=== PATIENT | male | born 1950 | race Caucasian/White ===

== ENCOUNTER 2022-04-28 06:28 | Inpatient (IN) ==
--- NOTE | 2022-04-14 11:31 | PAT Medication Instructions ---
Medication Instructions Date of Service April 14, 2022 Home Medications famotidine 20 mg tablet 20 mg PO HS insulin glargine 100 unit/mL subcutaneous cartridge 35 unit subcut QAM insulin lispro 200 unit/mL (3 mL) subcutaneous pen (Humalog KwikPen U-200 Insulin) 22 unit subcut TIDM lisinopril 20 mg tablet 20 mg PO QPM metformin 1,000 mg tablet 1,000 mg PO QPM Calcium 600-D3 Plus (mag-zinc)) 1 tab PO QAM ascorbic acid (vitamin C) 1,000 mg tablet (Vitamin C) 1,000 mg PO QAM aspirin 81 mg capsule 81 mg PO QAM atorvastatin 40 mg tablet 40 mg PO HS cholecalciferol (vitamin D3) 125 mcg (5,000 unit) tablet (Vitamin D3) 125 mcg PO QAM cyanocobalamin (vitamin B-12) 1,000 mcg tablet (Vitamin B-12) 1,000 mcg PO QAM fenofibrate nanocrystallized 145 mg tablet 145 mg PO QAM cenehrwfjva-fgv-hbrlqoqob-vitC capsule (Glucosamine Complex-MSM capsule) 1 cap PO QAM insulin glargine 100 unit/mL subcutaneous solution (Lantus U-100 Insulin) 45 unit subcut QPM metoprolol succinate 50 mg tablet,extended release 24 hr 50 mg PO QPM Multivitamin 50 Plus tablet) 1 tab PO QAM ASK your prescriber and surgeon aspirin 81 mg capsule 81 mg PO QAM STOP taking 2 weeks before surgery (or as soon as possible if surgery is within 2 weeks) bpvxnuowwuh-fok-mnzguelun-vitC capsule (Glucosamine Complex-MSM capsule) 1 cap PO QAM STOP taking 48 hours before surgery fenofibrate nanocrystallized 145 mg tablet 145 mg PO QAM DO NOT take the morning of surgery insulin lispro 200 unit/mL (3 mL) subcutaneous pen (Humalog KwikPen U-200 Insulin) 22 unit subcut TIDM Calcium 600-D3 Plus (mag-zinc)) 1 tab PO QAM ascorbic acid (vitamin C) 1,000 mg tablet (Vitamin C) 1,000 mg PO QAM cholecalciferol (vitamin D3) 125 mcg (5,000 unit) tablet (Vitamin D3) 125 mcg PO QAM cyanocobalamin (vitamin B-12) 1,000 mcg tablet (Vitamin B-12) 1,000 mcg PO QAM Multivitamin 50 Plus tablet) 1 tab PO QAM Take evening before surgery famotidine 20 mg tablet 20 mg PO HS insulin lispro 200 unit/mL (3 mL) subcutaneous pen (Humalog KwikPen U-200 Insulin) 22 unit subcut TIDM lisinopril 20 mg tablet 20 mg PO QPM metformin 1,000 mg tablet 1,000 mg PO QPM atorvastatin 40 mg tablet 40 mg PO HS insulin glargine 100 unit/mL subcutaneous solution (Lantus U-100 Insulin) 45 unit subcut QPM metoprolol succinate 50 mg tablet,extended release 24 hr 50 mg PO QPM Insulin Dependent Diabetic Patients * Test your blood sugar the morning of surgery * If Blood Sugar is GREATER THAN 150, take HALF of your regular dose of: insulin glargine- take 17 units * If Blood Sugar is LESS THAN 150, DO NOT TAKE ANY: insulin glargine Other Notes If you have any questions please call us at [phone] or [phone] or [phone] or [phone]
--- NOTE | 2022-04-15 09:09 | Anesthesiology Consultation ---
Date of Service April 15, 2022 Assessment & Plan (1) Encounter for pre-operative examination: - COVID screening: Per assessment on 04/15: No known COVID-19 positive contacts or current COVID-19 related symptoms. Travel screen negative. Patient vaccinated. At surgeon discretion if preop Covid testing being done. - Check BSG AM DOS - ASA instructions per surgeon/prescriber Chart Review Chart Review: Acceptable Risk for Surgery and Patient NOT seen in Pre Admission Testing History Surgery Operation Date: 04/28/22 10:20 Proposed Procedures p Percutaneous Endovascular Aneurysm Repair Abdominal Aortic Aneurysm - Constantino Rivera MD Height/Weight Height: 5 ft 9 in Weight: 114.2 kg Allergies Allergy/AdvReac Type Severity Reaction Status Date / Time almond Allergy Intermediate Cough Verified 04/14/22 14:35 (occasional) No Known Drug Allergies Allergy Verified 04/14/22 09:55 adhesive tape AdvReac Intermediate Rash Verified 04/14/22 09:55 Medications Home Medications Medication Instructions Recorded Confirmed Last Taken famotidine 20 mg tablet 20 mg PO HS 04/08/22 04/14/22 Unknown insulin glargine 100 unit/mL 35 unit subcut QAM 04/08/22 04/14/22 Unknown subcutaneous cartridge insulin lispro 200 unit/mL (3 mL) 22 unit subcut TIDM 04/08/22 04/14/22 Unknown subcutaneous pen (Humalog KwikPen U-200 Insulin) lisinopril 20 mg tablet 20 mg PO QPM 04/08/22 04/14/22 Unknown metformin 1,000 mg tablet 1,000 mg PO QPM 04/08/22 04/14/22 Unknown Ca 600 mg-D3 20 mcg-mag oxide 50 1 tab PO QAM 04/14/22 04/14/22 Unknown tp-Jg-zbxtss-manganese-boron tablet (Calcium 600-D3 Plus (mag-zinc)) ascorbic acid (vitamin C) 1,000 mg 1,000 mg PO QAM 04/14/22 04/14/22 Unknown tablet (Vitamin C) aspirin 81 mg capsule 81 mg PO QAM 04/14/22 04/14/22 Unknown atorvastatin 40 mg tablet 40 mg PO HS 04/14/22 04/14/22 Unknown cholecalciferol (vitamin D3) 125 125 mcg PO QAM 04/14/22 04/14/22 Unknown mcg (5,000 unit) tablet (Vitamin D3) cyanocobalamin (vitamin B-12) 1,000 mcg PO QAM 04/14/22 04/14/22 Unknown 1,000 mcg tablet (Vitamin B-12) fenofibrate nanocrystallized 145 145 mg PO QAM 04/14/22 04/14/22 Unknown mg tablet bzzvmmhkrbc-pgz-vxszokdvr-vitC 1 cap PO QAM 04/14/22 04/14/22 Unknown capsule (Glucosamine Complex-MSM capsule) insulin glargine 100 unit/mL 45 unit subcut QPM 04/14/22 04/14/22 Unknown subcutaneous solution (Lantus U-100 Insulin) metoprolol succinate 50 mg 50 mg PO QPM 04/14/22 04/14/22 Unknown tablet,extended release 24 hr trfffdfkhpsp-tvluiyja-zdptxc 1 tab PO QAM 04/14/22 04/14/22 Unknown tablet (Multivitamin 50 Plus tablet) Past Medical History Medical History Abdominal aortic aneurysm (AAA) 5.4 x 4.9 cm distal AAA per 04/08/22 CTA Aneurysm Stable common iliac artery aneurysms Popliteal artery aneurysms b/l, under surveillance x 10 years, no surgical intervention needed per patient Chronic back pain d/t compression fracture (20+ years ago) Chronic kidney disease stage 3 - monitoring Deep vein thrombosis RLE (treated with lovenox for 1 year in 2012), no issues since, unknown etiology Diabetes mellitus, type 2 IDDM GERD (gastroesophageal reflux disease) Hx of fall 20+ years ago - fell 12 feet after a ladder collapsed. had a compression fracture, no surgery - does have chronic back pain > treated with acupuncture at the time Hx of fracture of skull at age 3 d/t fall, no surgery -- was in a coma for several weeks. Hyperlipidemia Hypertension Osteoarthritis Peripheral neuropathy bilateral feet Pneumonia hx aspiration pneumonia ~2014 s/p colonoscopy and admitted inpatient at [facility] Precancerous lesion Multiple Seasonal depression Sleep apnea No device (no longer uses) Exercise / Class Metabolic Activity II 4-5 Yardwork/Stairs/Walk up hill Past Family History Family History Other No family history of adverse response to anesthesia Past Surgical History Surgical History Aneurysm artery, femoral Right femoral artery interposition graft (several years ago) H/O retained foreign body fully removed glass from bottom of the foot H/O umbilical hernia repair History of appendectomy History of colonoscopy History of endoscopic sinus surgery S/P aneurysm repair right femoral (2012 at [facility] [place]) S/P arthroscopy of left shoulder Past Anesthesia History No Family Hx of Anesthesia Complications and Other (hx aspiration pneumonia ~2 015 s/p colonoscopy and admitted inpatient at [facility]) History of PONV No Hx of PONV and Hx of Motion Sickness (seasickness) Social History Smoking Status: Former smoker tobacco type: cigarettes Do You Dip or Chew Tobacco: No Smoking End Date: Quit 1998 Hx Alcohol Use: No Hx Substance Use: Yes (CBD gummies occasionally) Review of Systems Patient denies chest pain, shortness of breath, dyspnea on exertion, fever, chills, cough, wheezing, palpitations. Physical Exam Vital Signs VITALS BP 179/52 P 77 TEMP 98.3 SP02 96%RA RESP 16 PHYSICAL Full cervical extension range of motion. Full TMJ range of motion. TMD 3 finger breaths Mallampati Score 3 Dentition: missing molars, + crowns/implants Lungs: clear throughout to auscultation Cardiac: regular rate and rhythm, no murmurs noted Spine: normal Carotid arteries: negative bruit Extremities: no edema Short, thick neck Lab Results Anesthesia Preop Results Results Anesthesia Widget: WBC 5.13 K/ul (4.8-10.8) 04/15/22 Hgb 14.7 g/dl (14.0-18.0) 04/15/22 Hct 41.6 % (42.0-52.0) L 04/15/22 Plt 181 K/uL (130-400) 04/15/22 PT 11.4 Seconds (9.0-12.0) 04/15/22 PTT 25.7 Seconds (21.0-31.0) 04/15/22 INR 1.1 (0.9-1.1) 04/15/22 Blood Type O Negative 04/15/22 Antibody Screen NEGATIVE 04/15/22 Testing Laboratory Results 04/14/22 SODIUM 137 POTASSIUM 4.1 CHLORIDE 106 CO2 27 BUN 28 CREATININE 1.7 GLUCOSE 210 A1C 8.7% Electrocardiogram Date: 04/15/22 SR with first degree AVB at 68bpm. LAD. Chest X-Ray Date: 04/15/22 FINDINGS: Lung volumes are normal. Lungs are clear. There is no pneumothorax or pleural effusion. Cardiac size is normal. Mediastinal contours are normal. There is no evidence for pulmonary edema. Old left second and third rib fractures are incidentally noted. There is an old right eighth rib fracture. IMPRESSION: No acute cardiopulmonary findings. Other Testing Aorta with runoff CTA (04/08/22) Extensive aortoiliac atherosclerotic plaque. 5.4 x 4.9 cm distal abdominal aortic aneurysm. Bilateral common and internal artery artery aneurysms, as above. The right internal iliac artery is occluded. Extensive atherosclerotic plaque within the bilateral lower extremities. Moderate to severe multifocal stenoses within the bilateral superficial femoral arteries with 2 small distal right SFA aneurysms, as above. Diminished flow within the bilateral calf vessels with occluded bilateral anterior tibial and posterior tibial arteries with flow predominantly through the peroneal arteries. Postoperative findings within the right groin. Mild aneurysmal dilatation of the right common femoral artery with moderate to severe stenosis at the origins of the right profunda and superficial femoral arteries. COVID-19 Risk Screen Screening Information COVID-19 Screen Date: 04/15/22 Exposure 21 Days Family/Household +COVID Last 21 Days: No Exposure 10 Days Any COVID Exposure Last 10 Days: No Symptoms Last 10 Days Experienced COVID Sx Last 10 Days: No + COVID 0-90 Days COVID + in Last 0-90 Days: No
[~2022-04-28 06:28] MED LIST: CEFAZOLIN 2,000 MG/15 ML SYR IV SCH
--- NOTE | 2022-04-28 06:40 | History & Physical Report ---
Date of Service April 28, 2022 Assessment & Plan (1) AAA (abdominal aortic aneurysm) without rupture: Plan: Patient for an EVAR of his AAA with a percutaneous approach on the left and open on the right. I have discussed the risks options and benefits of the procedure with the patient. The patient understands the risks options and benefits and agrees to the procedure. History of Present Illness Primary Care Provider: Woody Monterroso DO HPI: _Mr. Lyon is a middle-age male who presents to Dr. Rivera's vascular surgery clinic today for an annual follow-up visit regarding his history of aneurysmal disease. 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 This was done many years ago at [facility] by Dr. Frandy Davis. 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 Patient says he has not had any significant changes in his health, although he does state that his diabetes has not been under as good control in the last few months. He states that he did strike his right toe on something and fracture it, but this has healed up well. He admits some bilateral low back pain which radiates into his buttocks after ambulating about 50 yards. Other than that he denies any calf claudication, rest pain, nonhealing wounds or ulcers, discoloration of the feet or toes, other complaints. His aortoiliac ultrasound performed prior to today's appointment demonstrates an infrarenal abdominal aortic aneurysm measuring 4.8 cm in its largest diameter. This is increased in comparison to the ultrasound performed last year, at which time it measured 4.5 cm. He also has stable aneurysms of his common iliac arteries at 2.3 cm. His bilateral lower extremity arterial ultrasound demonstrates a patent right common femoral artery bifurcated interposition graft with elevated velocities of 423 cm/s, suggestive of a significant stenosis. 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 His left leg demonstrates an aneurysm of his left above-knee popliteal artery at 11 mm. It also demonstrates occlusion of his posterior tibial artery and anterior tibial artery in the calf with reconstitution. His bilateral ABIs are 1.0. On CTA he has an abdominal aortic aneurysm measuring 5.5 cm in size. It is saccular in shape. He also has distal superficial femoral popliteal artery aneurysms which are small and do not need to be treated at this time. He did have a right femoral artery aneurysm which was repaired bifurcated graft. Allergies Allergy/AdvReac Type Severity Reaction Status Date / Time almond Allergy Intermediate Cough Verified 04/14/22 14:35 (occasional) No Known Drug Allergies Allergy Verified 04/14/22 09:55 adhesive tape AdvReac Intermediate Rash Verified 04/14/22 09:55 Home Medications Medication Instructions Recorded Confirmed Type famotidine 20 mg tablet 20 mg PO 04/08/22 04/14/22 History insulin glargine 100 unit/mL 35 unit subcut QAM 04/08/22 04/14/22 History subcutaneous cartridge insulin lispro 200 unit/mL (3 mL) 22 unit subcut TI 04/08/22 04/14/22 History subcutaneous pen (Humalog KwikPen U-200 Insulin) lisinopril 20 mg tablet 20 mg PO QPM 04/08/22 04/14/22 History metformin 1,000 mg tablet 1,000 mg PO QPM 04/08/22 04/14/22 History Ca 600 mg-D3 20 mcg-mag oxide 50 1 tab PO QAM 04/14/22 04/14/22 History wl-Qk-ilbdtc-manganese-boron tablet (Calcium 600-D3 Plus (mag-zinc)) ascorbic acid (vitamin C) 1,000 mg 1,000 mg PO QAM 04/14/22 04/14/22 History tablet (Vitamin C) aspirin 81 mg capsule 81 mg PO QA 04/14/22 04/14/22 History atorvastatin 40 mg tablet 40 mg PO 04/14/22 04/14/22 History cholecalciferol (vitamin D3) 125 125 mcg PO QAM 04/14/22 04/14/22 History mcg (5,000 unit) tablet (Vitamin D3) cyanocobalamin (vitamin B-12) 1,000 mcg PO QAM 04/14/22 04/14/22 History 1,000 mcg tablet (Vitamin B-12) fenofibrate nanocrystallized 145 145 mg PO QAM 04/14/22 04/14/22 History mg tablet auqqtzspmoo-lnr-tfothumnf-vitC 1 cap PO QAM 04/14/22 04/14/22 History capsule (Glucosamine Complex-MSM capsule) insulin glargine 100 unit/mL 45 unit subcut QPM 04/14/22 04/14/22 History subcutaneous solution (Lantus U-100 Insulin) metoprolol succinate 50 mg 50 mg PO QPM 04/14/22 04/14/22 History tablet,extended release 24 hr oyqzbmnoqxvp-eubwlohs-ciwkcg 1 tab PO QAM 04/14/22 04/14/22 History tablet (Multivitamin 50 Plus tablet) Past Med/Surg History Medical History Abdominal aortic aneurysm (AAA) 5.4 x 4.9 cm distal AAA per 04/08/22 CTA Aneurysm Stable common iliac artery aneurysms Popliteal artery aneurysms b/l, under surveillance x 10 years, no surgical intervention needed per patient Chronic back pain d/t compression fracture (20+ years ago) Chronic kidney disease stage 3 - monitoring Deep vein thrombosis RLE (treated with lovenox for 1 year in 2012), no issues since, unknown etiology Diabetes mellitus, type 2 IDDM GERD (gastroesophageal reflux disease) Hx of fall 20+ years ago - fell 12 feet after a ladder collapsed. had a compression fracture, no surgery - does have chronic back pain > treated with acupuncture at the time Hx of fracture of skull at age 3 d/t fall, no surgery -- was in a coma for several weeks. Hyperlipidemia Hypertension Osteoarthritis Peripheral neuropathy bilateral feet Pneumonia hx aspiration pneumonia ~2014 s/p colonoscopy and admitted inpatient at [facility] Precancerous lesion Multiple Seasonal depression Sleep apnea No device (no longer uses) Surgical History Aneurysm artery, femoral Right femoral artery interposition graft (several years ago) H/O retained foreign body fully removed glass from bottom of the foot H/O umbilical hernia repair History of appendectomy History of colonoscopy History of endoscopic sinus surgery S/P aneurysm repair right femoral (2012 at [facility] [place]) S/P arthroscopy of left shoulder Family History Other No family history of adverse response to anesthesia Social History Smoking Status: Former smoker Smoking End Date: Quit 1998; Second Hand Exposure: No; Do You Dip or Chew Tobacco: No; Tobacco Cessation Education Requested by Patient: No Hx Alcohol Use: No Hx Substance Use: Yes (CBD gummies occasionally) Preferred Language: Italian Communication Ability: Effective Placement Director Required: No Beliefs That Will Affect Care: None Current Living Situation: Spouse Other Information That Helps Us Care for You: No Feels Safe at Home: Yes Safety Concerns: Feels Safe At This Time Assistive Devices: Glasses Review of Systems All systems reviewed & are unremarkable except as noted in HPI & below Physical Exam Physical Exam: Constitutional: In general patient is an overweight but healthy-appearing well- nourished developed middle-aged male in no distress. He is alert and oriented without any deficits. His neck is supple nontender without a carotid bruit. His heart is regular, his lungs are decreased lightly but clear throughout. His abdomen is protuberant due to body habitus. It is slightly firm but nontender. I am unable to appreciate any pulsatile mass. His brachial and radial pulse are +3. His left femoral pulse is +3. His right femoral pulse is +3. His right lower extremity pulses are nonpalpable. His left DP and PT pulses are +1. He has brisk capillary fill no sign of distal ischemia
[2022-04-28] MEDS ORDERED: ONDANSETRON INJ 2 MG/ML 2 ML VIAL ONE ×2 (07:09→22:21)
[2022-04-28] MEDS ORDERED: fentaNYL citrate PF 100 MCG/2 ML VIAL ONE ×2 (07:09→09:47)
[2022-04-28] MEDS ORDERED: PROPOFOL IV EMULSION 10 MG/ML 20 ML VIAL IV ONE (07:09)
[2022-04-28] MEDS ORDERED: DEXAMETHASONE SOD INJ 4 MG/ML VIAL ONE (07:09)
[2022-04-28] MEDS ORDERED: MIDAZOLAM HCL 1 MG/ML 2ML VIAL ONE (07:09)
[2022-04-28] MEDS ORDERED: ROCURONIUM BROMIDE 10 MG/ML 5 ML VIAL IV ONE ×9 (07:10→11:17)
[2022-04-28] MEDS ORDERED: PHENYLEPHRINE HCL 10 MG/ML VIAL ONE (07:10)
[2022-04-28] MEDS ORDERED: LIDOCAINE 2% MPF LOCAL 5 ML VIAL INFIL ONE (07:10)
--- NOTE | 2022-04-28 07:30 | History & Physical Bridge Note ---
Date of Service April 28, 2022 History & Physical Bridge Note I have examined the patient, reviewed the History & Physical and in the interval since the performance of the History & Physical I have noted the following changes of clinical significance: no changes noted
[2022-04-28] MEDS ORDERED: ePHEDrine sulfate 50 MG/ML AMP IV PRN (07:48)
[2022-04-28] MEDS ORDERED: ONDANSETRON INJ 2 MG/ML 2 ML VIAL IV PRN (07:48)
[2022-04-28] MEDS ORDERED: fentaNYL citrate PF 100 MCG/2 ML VIAL IV PRN (07:48)
[2022-04-28] MEDS ORDERED: ATROPINE SULFATE 0.1 MG/ML 10ML SYR IV PRN (07:48)
[2022-04-28] MEDS ORDERED: HYDROmorphone INJ 2 MG/ML SYR/VIAL IV PRN (07:48)
[2022-04-28] MEDS ORDERED: SUCCINYLCHOLINE CHLORIDE 20 MG/ML 10 ML VIAL IV ONE (07:55)
[2022-04-28] MEDS ORDERED: HEPARIN SOD (PORCINE) 1000 UNIT/ML ONE (09:53)
[2022-04-28] MEDS ORDERED: VISIPAQUE IV PRN (11:44)
[2022-04-28] MEDS ORDERED: ARISTA ABSORBABLE HEMOSTAT 3GM TOP ONE (11:44)
[2022-04-28] MEDS ORDERED: SUGAMMADEX SODIUM 200 MG/2 ML VIAL IV ONE (11:50)
[2022-04-28] MEDS ORDERED: PROTAMINE SULFATE 10 MG/ML 5 ML VIAL IV ONE (11:52)
[2022-04-28] MEDS ORDERED: SURGICEL ABSORB HEMOSTAT 2IN X 14IN TOP ONE (11:57)
[2022-04-28] MEDS ORDERED: ceFAZolin 330 MG/ML 1 GM VIAL ONE ×2 (11:58)
[2022-04-28] MEDS ORDERED: ePHEDrine sulfate 50 MG/ML SYR ONE (12:03)
--- NOTE | 2022-04-28 12:47 | Procedure Note ---
Angiogram Post Procedure Fluoroscopy Time (minutes): 83.8 Radiation (mGy): 2,919 Contrast: 168 Post Operative Report Pre & Post Diagnosis Operation Date: 04/28/22 08:00 Pre-Op Diagnosis: Abdominal Aortic Aneurysm Post-Op Diagnosis: Abdominal Aortic Aneurysm I identified the patient and participated in the time-out.: Yes Procedure Operation Date: 04/28/22 08:00 Actual Procedures p Endovascular Abdominal Aortic Aneurysm Repair, Ultrasound localization of the left comon femoral artery, Percutaneous on the Left, Open on the Right, Percutaneous Transluminal Angioplasty and Stenting of Right Superficial Femoral Artery and Right Profunda Artery - Constantino Rivera MD Surgeon Constantino Rivera MD Snowboard Designer Mainor,PAC Estimated Blood Loss 150 Findings Consistent with Post-Op Diagnosis Specimens none Anesthesia Type General Complications none Disposition Accompanied Patient To Recovery: No Disposition: Recovery Room Indications This is a 71-year-old gentleman who had enlargement of his abdominal aortic aneurysm to 5.5 cm in size. He has a known right internal iliac artery occlusion and a small left internal iliac artery aneurysm well beyond the origin. Endovascular repair of his abdominal aortic aneurysm was recommended. On his preoperative CTA he was also shown to have significant narrowings of the bifurcated Dacron graft of the right groin with the superficial femoral artery and profundofemoral artery limbs being stenotic. Stenting of these limbs would be attempted during this procedure. I have discussed the risks options and benefits of the procedure with the patient. The patient understands the risks options and benefits and agrees to the procedure. Description of Procedure The patient was taken to the operating room and placed in the supine position. After general anesthesia was accomplished the groins and abdomen were prepped and draped in a sterile manner. The patient was identified and a timeout was performed. Ultrasound was used to image the left common femoral artery. It was patent with mild posterior plaque. A puncture was then made of the left common femoral artery under ultrasound guidance. We used the Keclona measuring device to measure distance of the puncture. It measured to be 4 cm. An 8 Slovak sheath was inserted. We inserted an 035 guidewire and a Kumpe catheter. This was passed up into the abdominal aorta. We switched the wires to a Chastity wire and then inserted an 16 Slovak dry seal. Using an 035 wire and a rim catheter we attempted to cannulate the right side for the left. This cannot be done we therefore switched to a velasco's hook which allowed us to cannulate the right side. We then passed an 035 Glidewire down into the right common femoral artery. We switched the velasco's hook to Kumpe. The superficial femoral artery was then cannulated on the right leg. Wire was advanced. We used a 035 stiff Glidewire. The Kumpe was removed. A 6 Slovak destination was inserted over the wire. It was then passed over to the right side. We then inserted another 035 wire and a velasco's hook through the 16 Slovak dry seal. We again cannulated the right side with the other wire and passed down into the common femoral artery. We cannot cannulate the profunda with the Kumpe catheter. We switched to a quick cross. Using the quick cross and an 035 Glidewire we were able to cannulate the profundofemoral artery. We advanced a quick cross into the profunda. We then exchanged a wire to a stiffened Glidewire. We then passed a 7 x 19 Omnilink into the profundofemoral artery and a 7 x 39 Omnilink into the superficial femoral artery. The narrowing that was seen was at the limbs of the bifurcated graft down through the anastomosis. The stents cover the limbs as well as the distal anastomosis of both arteries. Both Omnilink's were deployed. Completion angio at that point. There was a waist seen in the stent most likely at the distal anastomosis with the superficial femoral artery. We used a 8 x 4 Convent balloon which did not respond well. We then exchanged t his to an 8 x 2 conquest balloon which dilated the stent nicely and had no residual narrowing. At that point we removed the destination sheath and all wires except the Card wire. A cutdown was made in the right groin. Incision was carried down through scar tissue until the Dacron graft of the right groin was identified. We isolated the shaft of the graft from the inguinal ligament down close to the bifurcation of the graft. Patient was heparinized previously prior to inserting the dry seal. He was given heparin every hour during the procedure. A puncture was then made in the shaft of the graft on the right side and an 8 Slovak sheath inserted. We then passed an 035 Glidewire and a Kumpe catheter through the 8 Slovak sheath up into the suprarenal aorta. We exchanged the wire to a Chastity wire and remove the Kumpe. We then inserted an 16 Slovak dry seal the right side. Pigtail was inserted to the left side. This was passed up to the suprarenal aorta. We then inserted a 23 x 14-1/2 x 12 cm conformable excluder graft up the right groin. An aortogram was performed marking the renal arteries. We then deployed the graft just below the renal arteries. Another injection of 10 x 20 contrast was performed which showed the top of the graft to be just below the renals. The pigtail was pulled down as well as the 16 Slovak sheath in the left groin and the hooks of the graft deployed. An 035 wire and a Kumpe was passed up through the left groin. It appeared that the gate did not open up completely. We did multiple attempts of trying to get the gate cannulated. We inserted a Q50 balloon and secured the proximal hooks and shaft of the graft. We were hoping that it would open up the gate which did not. We then decided to extend and deployed the right limb. The right limb was deployed without difficulty. We then extended with a 16 x 14-1/2 x 10 cm contralateral limb. It was decided trying to snare a wire from the opposite side. A snare was inserted through the left groin. We then used a simple catheter and 035 guidewire to try and open up the gate and snare the wire. Multiple attempts were done. We then tried an 014 wire. This was successful after few attempts. The wire was snared brought in through the sheath. Unfortunately the wire pulled out of the snare and the 16 Slovak sheath on the left side. It did appear at that time that the symptoms catheter had pulled down through the gate opening up the gate completely. We then put an 035 wire through the symptoms instead of the 014 snare the wire and brought it out through the left groin. Catheter was then inserted over the wire from the left groin into the main body. We used the pigtail to do this. Once the pigtail was in place we switched the wire to a Chastity wire. It was a marker pig. We then pulled the sheath down in the left pelvis and hand injected to find the bifurcation of the iliac. Once this was seen we decided to use a 16 x 28 x 10 cm contralateral limb. The pigtail was removed. We inserted the 16 Slovak dilator and advanced the left sheath up into the gate. Then inserted the graft into the appropriate position pulled the sheath back and deployed it without difficulty. We then inserted the Q50 balloon through the left groin and balloon the overlaps in the attachment sites proximal distally. We then inserted the balloon to the right groin and expanded the attachment sites. Pigtail was reinserted through the left side. Completion arteriogram showed the graft to be widely patent with no evidence of type I or type II endoleak's. Wire was reinserted through the left pigtail. Pigtail was removed. The sheath was then pulled and the Manta device used to seal the puncture site. Added hemostasis was noted the left side. On the right side the sheath was pulled after clamping the artery distally and then proximally after the sheath was out. The puncture site was repaired using running 4-0 Prolene suture. Clamps were removed. Excellent flow was seen through the graft. Adequate stasis was noted of the puncture site in the wound. Wound was irrigated with saline solution. It was then closed with running 2-0 Vicryl suture for the femoral sheath and a 3-0 Vicryl running suture for subcutaneous layer. Tappan were used for skin incision. A Prevena dressing was then applied. A sterile dressing was applied to the puncture site in the left side. Adequate hemostasis was seen of the puncture site.The patient left the operation room in satisfactory condition and tolerated the procedure well. All needle and sponge counts were correct at the end of the procedure. Hermelinda Griffith Pac assisted due to lack of resident availability and was necessary for positioning, draping, retraction, wound closure deep layers, subcutaneous tissue, and skin closure and was necessary for assisting with the case. I attest to the content of the Intraoperative Record and any orders documented therein. Any exceptions are noted below.
[2022-04-28 13:06] LABS: Hematocrit (blood only) 37.8 % (42.0-52.0); Hemoglobin 13.1 g/dl (14.0-18.0)
[2022-04-28] MEDS ORDERED: MoRPHine SULFATE 4 MG/ML 1 ML CARP\\VIAL IV PRN (13:57)
--- NOTE | 2022-04-28 14:54 | Critical Care Consultation ---
Date of Consultation April 28, 2022 Assessment & Plan (1) S/P AAA repair: (2) CKD (chronic kidney disease) stage 3, GFR 30-59 ml/min: (3) Hypertension: (4) Hyperlipidemia: (5) Diabetes type 2, controlled: (6) History of DVT (deep vein thrombosis): (7) CKD (chronic kidney disease) stage 3, GFR 30-59 ml/min: (8) DAVID (obstructive sleep apnea): (9) S/P AAA repair: Plan Reason Critically Ill: 72 M with history of DM2 (on insulin), chronic back pain, CKD3, prior DVT (not anticoagulated), DAVID (not on CPAP), GERD, HLD, HTN, and OA who has been admitted for management in the ICU following endovascular AAA repair by Dr. Rivera on 04/28/22. NEURO * CAM ICU: Negative * Sedation: None * Analgesia: Percocet 5/325 1-2 tablets PO Q4H PRN, Morphine 1-4 mg IV Q2H PRN CARDIAC * Hypertension: Continue Lisinopril and Metoprolol (hold for SBP < 100, contact vascular for elevations per parameters) * Hyperlipidemia: Continue Atorvastatin and Fenofibrate * Clopidogrel 75 mg QAM started per vascular recommendations RESPIRATORY * Currently receiving 2L NC, SpO2 94%, wean as tolerated * History of DAVID, not on CPAP, counseled regarding respiratory and cardiac benefits of CPAP use GI * Heart Healthy/Carb Consistent Diet * No active abdominal pain (only groin pain), passing gas, bowel mvmt anticipated RENAL/LYTES * No documented electrolyte derangement * Known history of CKD 3 (on Lisinopril), stable for years (per patient) * BMP in AM * Replace electrolytes PRN * Mancera intact, anticipate removal POD#1 * No dysuria or suprapubic pressure ENDO * Patient w/ history of DM2 on Insulin and Metformin * Home insulin dosing ordered inpatient, metformin held * Last A1c (March) was 8.7 (per patient) * Follow ICU hyperglycemic protocols HEME * Stable H&H: 13.1/37.8 * Will monitor for any drops, CBC pending in AM * Aspirin held in setting of vascular surgery ID * No concerns for infection at this point * Continue to monitor surgical sites and vitals * Cefazolin 2g IV Q8H (d/c after 2 bags) as surgical ppx INTEGUMENTARY * Surgical bandages remain intact * No evidence of erythema or purulence LINES/IV ACCESS * PIVs intact. DVT PROPHYLAXIS * Continue home Aspirin 81 mg * Additional DVT Ppx deferred in the setting of recent vascular surgery Thank you for allowing us to be part of this patient's care. Please refer to Dr. Cam's documentation for any further recommendations Supervising Physician Co-Signing Physician Notes Patient seen and examined. EMR reviewed. Discussed with family practice resident and agree with assessment plan as noted. 72-year-old male with poorly controlled diabetes admitted for elective endovascular aortic aneurysm repair. He is doing well postoperatively. Pain management per vascular surgery. Continue glycemic control with his home regimen. Antihypertensives have been restarted. Defer anticoagulation to vascular surgery. Await postoperative labs. Advancing diet as tolerated. Anticipate discontinuation of Mancera catheter and arterial line within the next 24 hours. We will await follow-up laboratory studies postoperatively. The patient appears to be doing well currently. Thanks for the opportunity of participating in the care of this patient. We will continue to follow with you. History of Present Illness Reason for Consultation: S/p AAA Repair Requesting Physician: Constantino Rivera MD Attending Physician: Constantino Rivera MD History of Present Illness Alejandro is a 72 M with history of DM2 (on insulin), chronic back pain, CKD3, prior DVT (not anticoagulated), DAVID (not on CPAP), GERD, HLD, HTN, and OA who has been consulted for management in the ICU following endovascular AAA repair by Dr. Rivera on 04/28/22. Procedure was without complication. Patient endorses a mild headache, but notes these are chronic and random in nature, states they typically resolve with Aspirin. Patient denies any chest pain, dyspnea, abdominal pain, visual changes, or lower extremity pain. Patient's Mancera remains intact, but he notes that he is interested in getting up from bed as soon as possible to use the restroom. Patient is urinating via Mancera w/o difficulty and passing gas regularly. S/p Endovascular Repair of Infrarenal Abdominal Aortic Aneurysm Repair (5.5 cm x 4.9 cm on CTA 03/19/22), Ultrasound localization of the L Common Femoral Artery, Percutaneous on the Left, Open on the Right, Percutaneous Transluminal Angioplasty and Stenting ofRight Superficial Femoral Artery and Right Profunda Artery on 04/28/22 Medications: Reviewed Allergies: Reviewed Allergies Allergy/AdvReac Type Severity Reaction Status Date / Time almond Allergy Intermediate Cough Verified 04/28/22 06:44 (occasional) No Known Drug Allergies Allergy Verified 04/28/22 06:44 adhesive tape AdvReac Intermediate Rash Verified 04/28/22 06:44 Home Medications Medication Instructions Recorded Confirmed Type famotidine 20 mg tablet 20 mg PO HS 04/08/22 04/28/22 History insulin glargine 100 unit/mL 35 unit subcut QAM 04/08/22 04/28/22 History subcutaneous cartridge insulin lispro 200 unit/mL (3 mL) 22 unit subcut TIDM 04/08/22 04/28/22 History subcutaneous pen (Humalog KwikPen U-200 Insulin) lisinopril 20 mg tablet 20 mg PO QPM 04/08/22 04/28/22 History metformin 1,000 mg tablet 1,000 mg PO QPM 04/08/22 04/28/22 History Ca 600 mg-D3 20 mcg-mag oxide 50 1 tab PO QAM 04/14/22 04/28/22 History sp-Co-eitncx-manganese-boron tablet (Calcium 600-D3 Plus (mag-zinc)) ascorbic acid (vitamin C) 1,000 mg 1,000 mg PO QAM 04/14/22 04/28/22 History tablet (Vitamin C) aspirin 81 mg capsule 81 mg PO QAM 04/14/22 04/28/22 History atorvastatin 40 mg tablet 40 mg PO HS 04/14/22 04/28/22 History cholecalciferol (vitamin D3) 125 125 mcg PO QAM 04/14/22 04/28/22 History mcg (5,000 unit) tablet (Vitamin D3) cyanocobalamin (vitamin B-12) 1,000 mcg PO QAM 04/14/22 04/28/22 History 1,000 mcg tablet (Vitamin B-12) fenofibrate nanocrystallized 145 145 mg PO QAM 04/14/22 04/28/22 History mg tablet oadgijkptsh-hfj-yhubrecix-vitC 1 cap PO QAM 04/14/22 04/28/22 History capsule (Glucosamine Complex-MSM capsule) insulin glargine 100 unit/mL 45 unit subcut QPM 04/14/22 04/28/22 History subcutaneous solution (Lantus U-100 Insulin) metoprolol succinate 50 mg 50 mg PO QPM 04/14/22 04/28/22 History tablet,extended release 24 hr mxcdtmkxlopp-mxufhcvy-zxqimi 1 tab PO QAM 04/14/22 04/28/22 History tablet (Multivitamin 50 Plus tablet) Patient History Medical History Abdominal aortic aneurysm (AAA) 5.4 x 4.9 cm distal AAA per 04/08/22 CTA Aneurysm Stable common iliac artery aneurysms Popliteal artery aneurysms b/l, under surveillance x 10 years, no surgical intervention needed per patient Chronic back pain d/t compression fracture (20+ years ago) Chronic kidney disease stage 3 - monitoring Deep vein thrombosis RLE (treated with lovenox for 1 year in 2012), no issues since, unknown etiology Diabetes mellitus, type 2 IDDM GERD (gastroesophageal reflux disease) Hx of fall 20+ years ago - fell 12 feet after a ladder collapsed. had a compression fracture, no surgery - does have chronic back pain > treated with acupuncture at the time Hx of fracture of skull at age 3 d/t fall, no surgery -- was in a coma for several weeks. Hyperlipidemia Hypertension Osteoarthritis Peripheral neuropathy bilateral feet Pneumonia hx aspiration pneumonia ~2014 s/p colonoscopy and admitted inpatient at [facility] Precancerous lesion Multiple Seasonal depression Sleep apnea No device (no longer uses) Surgical History Aneurysm artery, femoral Right femoral artery interposition graft (several years ago) H/O retained foreign body fully removed glass from bottom of the foot H/O umbilical hernia repair History of appendectomy History of colonoscopy History of endoscopic sinus surgery S/P aneurysm repair right femoral (2013 at [facility] [place]) S/P arthroscopy of left shoulder Family History Other No family history of adverse response to anesthesia Social History Smoking Status: Former smoker Smoking End Date: Quit 1998; Second Hand Exposure: No; Do You Dip or Chew Tobacco: No; Tobacco Cessation Education Requested by Patient: No Hx Alcohol Use: No Hx Substance Use: Yes (CBD gummies occasionally) Preferred Language: Eritrean Communication Ability: Effective Elementary Reading Specialist Required: No Beliefs That Will Affect Care: None Current Living Situation: Spouse Other Information That Helps Us Care for You: No Feels Safe at Home: Yes Safety Concerns: Feels Safe At This Time Assistive Devices: Glasses Review of Systems Review of Systems: As per HPI Physical Exam Physical Exam: Gen: NAD, alert, interactive HEENT: Supple, no LAD, no thyromegaly, no JVD Resp:Non-labored, no wheezing/rhonchi/rales, clear to anterior auscultation bilaterally CV:RRR, normal S1/S2, no M/R/G Abd: Soft, abdominal adiposity, non-distended, no tenderness to light palpation, bowels +, no masses Incisions: Surgical bandages (R and L groin) intact, area clean and dry w/o erythema or purulence Extr: 2+ dp bilaterally, no edema Skin: No rashes lesions or erythema Results & Data Results & Data ([facility]) Vital Signs (Past 12 Hours) Vital Signs Temp Pulse Pulse Resp BP BP Pulse Ox 04/28/22 14:35 72 9 L 94 04/28/22 14:40 04/28/22 13:25 71 14 113/57 L 119/45 L 93 04/28/22 13:15 77 14 122/57 L 110/46 L 95 04/28/22 13:05 37.1 C 74 17 109/54 L 106/40 L 95 04/28/22 12:55 76 14 110/48 L 101/41 L 96 04/28/22 12:45 77 21 113/53 L 100/43 L 94 04/28/22 12:35 78 20 120/64 104/47 L 95 04/28/22 12:28 36.6 C 81 18 128/51 L 97 O2 Del Method O2 Flow Rate 04/28/22 14:35 04/28/22 14:40 Nasal Cannula 2 04/28/22 13:25 Nasal Cannula 2 04/28/22 13:15 Nasal Cannula 2 04/28/22 13:05 Room Air 04/28/22 12:55 Room Air 04/28/22 12:45 Oxymask 3 04/28/22 12:35 Oxymask 5 04/28/22 12:28 Oxymask 5 Laboratory Results Laboratory Results Hgb 13.1 g/dl (14.0-18.0) L 04/28/22 12:37 Hct 37.8 % (42.0-52.0) L 04/28/22 12:37 POC Glucose 196 mg/dl (70-99) H 04/28/22 12:33 SARS-CoV-2, RNA, NAAT NEGATIVE (NEGATIVE) 04/28/22 Unknown Blood Type O Negative 04/28/22 06:59 Antibody Screen NEGATIVE 04/28/22 06:59 Crossmatch See Detail 04/28/22 06:59 Resident Activity Tracking Resident Involvement: Resident Care Provided Care Provided: Adult Hospital Medicine
[2022-04-28] MEDS ORDERED: LACTATED RINGER'S 1,000 ML IV SCH (15:15)
[2022-04-28] MEDS: oxyCODONE/ACETAMINOPHEN 5mg/325mg TAB PO PRN ×2 (15:29→20:20)
[2022-04-28] MEDS: ceFAZolin 2000MG 2,000 MG/15 ML SYR IV SCH ×2 (15:30→23:15)
--- NOTE | 2022-04-28 16:16 | Billing Data ---
Date of Service April 28, 2022 Coding Level of Care Code 38056 INT INP/OBS CARE
[2022-04-28] MEDS: INSULIN ASPART PER UNIT SQ SCH (16:43)
[2022-04-28] MEDS: FAMOTIDINE 20 MG TAB PO SCH (20:16)
[2022-04-28] MEDS: ATORVASTATIN 40 MG TAB PO SCH (20:16)
[2022-04-28] MEDS: LANTUS PER UNIT CHARGE SQ SCH (20:17)
[2022-04-28] MEDS: lisinopril 20 MG TAB PO SCH (20:17)
[2022-04-28] MEDS: METOPROLOL SUCC 50MG EXT REL TAB PO SCH (20:17)
[2022-04-29] MEDS: ONDANSETRON INJ 2 MG/ML 2 ML VIAL IV PRN ×2 (04:31→10:35)
[2022-04-29 05:18] LABS: BUN Creatinine Ratio 13.9 (10-20); Calcium 9.1 mg/dl (8.5-10.1); Creatinine Clr Calc Pharmacy 40.7 ml/min; Est GFR (African American) 36.8 ml/min; Est GFR (Non-African American) 31.8 ml/min; Magnesium 2.4 mg/dl (1.7-2.4); Phosphorus 5.5 mg/dl (2.5-4.9); Potassium 4.5 mmol/L (3.5-5.1)
[2022-04-29 05:40] LABS: Basophils # (auto) 0.04 K/uL (0-0.2); Basophils % (auto) 0.4 %; Hematocrit (blood only) 38.4 % (42.0-52.0); Hemoglobin 13.4 g/dl (14.0-18.0); Immature Granulocytes # (auto) 0.04 K/uL (0.01-0.20); Immature Granulocytes % (auto) 0.4 %; Lymphocytes # (auto) 0.83 K/uL (1.2-3.4); Lymphocytes % (auto) 7.9 %; Mean Corpuscular Hemoglobin 31.4 pg (25.0-34.0); Mean Corpuscular Hgb Conc 34.9 g/dL (32.0-36.0); Mean Corpuscular Volume 89.9 fL (80.0-100.0); Mean Platelet Volume 10.7 fL (9.4-12.4); Monocytes # (auto) 0.68 K/uL (0.11-0.59); Monocytes % (auto) 6.5 %; Neutrophils # (auto) 8.95 K/uL (1.40-6.50); Neutrophils % (auto) 84.8 %; Platelet Count 168 K/uL (130-400); RDW Coefficient of Variation 12.6 % (11.5-14.5); RDW Standard Deviation 41.1 fL (36.4-46.3); Red Blood Count 4.27 M/uL (4.70-6.10); White Blood Count 10.54 K/ul (4.8-10.8)
--- NOTE | 2022-04-29 07:16 | Critical Care Progress Note ---
Date of Service April 29, 2022 Assessment & Plan (1) AAA (abdominal aortic aneurysm) without rupture: (2) Diabetes type 2, controlled: (3) GERD (gastroesophageal reflux disease): (4) Hyperlipidemia: (5) Hypertension: (6) History of DVT (deep vein thrombosis): (7) CKD (chronic kidney disease) stage 3, GFR 30-59 ml/min: (8) DAVID (obstructive sleep apnea): (9) S/P AAA repair: Plan Reason Critically Ill: 72 M with history of DM2 (on insulin), chronic back pain, CKD3, prior DVT (not anticoagulated), DAVID (not on CPAP), GERD, HLD, HTN, and OA who has been admitted for management in the ICU following endovascular AAA repair by Dr. Rivera on 04/28/22. NEURO * CAM ICU: Negative * Sedation: None * Analgesia: Percocet 5/325 1-2 tablets PO Q4H PRN, Morphine 1-4 mg IV Q2H PRN CARDIAC * Hypertension: Continue Lisinopril and Metoprolol (hold for SBP < 100, contact vascular for elevations per parameters) * Hyperlipidemia: Continue Atorvastatin and Fenofibrate * Clopidogrel 75 mg QAM started per vascular recommendations RESPIRATORY * Currently oxygenating well on room air * History of DAVID, not on CPAP, counseled regarding respiratory and cardiac b enefits of CPAP use GI * Heart Healthy/Carb Consistent Diet * No active abdominal pain (only groin pain), passing gas yesterday, bowel mvmt anticipated * Nausea overnight into AM, suspect a/w recent anesthesia, patient consumed light breakfast RENAL/LYTES * No documented electrolyte derangement * Known history of CKD 3 (on Lisinopril), stable for years (per patient) * BMP showing BUN 28H, Cr 2.02 H, GFR 31.8 L * Recommending that patient follow with Nephrology regarding possible DM associated CKD and rising Cr * Mancera removed, independently voiding * No dysuria or suprapubic pressure ENDO * Patient w/ history of DM2 on Insulin and Metformin * Home insulin dosing ordered inpatient, metformin held * Last A1c (March) was 8.7 (per patient) * Follow ICU hyperglycemic protocols HEME * Stable H&H: 13.4/38.4 ID * No concerns for infection at this point. No leukocytosis. * Continue to monitor surgical sites and vitals * Cefazolin 2g IV Q8H (d/c after 2 bags) as surgical ppx, complete INTEGUMENTARY * Surgical bandages remain intact * No evidence of erythema or purulence LINES/IV ACCESS * PIVs removed in AM DVT PROPHYLAXIS * Continue home Aspirin 81 mg * Additional DVT Ppx deferred in the setting of recent vascular surgery * Patient ambulating well Thank you for allowing us to be part of this patient's care. Anticipate discharge today. Please refer to Dr. Cam's documentation for any further recommendations Admission and Anticipated Discharge Date Admission Date: April 28, 2022 Supervising Physician Co-Signing Physician Notes Patient seen and examined. EMR reviewed. Discussed on multidisciplinary rounds as well as with bedside critical care nurse. Discussed and seen with family practice resident. Agree with assessment plan as noted. Patient is doing well clinically. Studies arterial line removed. He is hemodynamically stable. Mancera catheter is out. He is up to the chair. He is tolerating a diet. Patient does have evidence of stage IV chronic kidney disease. He is establishing with a new PCM. Recommended that he be referred for outpatient nephrology evaluation as he likely has a degree of diabetic nephropathy. Can reassess therapy for sleep disordered breathing as an outpatient. The patient's critical care issues have resolved. Disposition per vascular surgery. Critical care will sign off. Feel free to contact us with questions or concerns. Ashley Allen is a 72 M with history of DM2 (on insulin), chronic back pain, CKD3, prior DVT (not anticoagulated), DAVID (not on CPAP), GERD, HLD, HTN, and OA who has been admitted for management in the ICU following endovascular AAA repair by Dr. Rivera on 04/28/22. Patient notes that he is feeling well today and that his pain is well controlled. Nursing notes that he experienced some emesis overnight and into t his morning, but his symptoms are improved with Zofran. Patient denies any abdominal pain, suprapubic pressure, or dysuria. His Mancera was removed this AM and he has independently voided since removal. Patient was passing gas yesterday, but notes he has not passed as much today, he notes he normally does not pass gas or move his bowels daily. Patient was able to drink his coffee and have a banana this morning, but notes a poor appetite. He denies chest pain, dyspnea, headaches, or calf pain. Patient ambulated well around the ICU and was sitting upright in his chair upon arrival. Patient states that he is ready to go home. Review of Systems Review of Systems: As per HPI Physical Exam Physical Exam: Gen: NAD, alert, interactive HEENT: Supple, no LAD, no thyromegaly, no JVD Resp:Non-labored, no wheezing/rhonchi/rales, clear to anterior auscultation bilaterally CV:RRR, normal S1/S2, no M/R/G Abd: Soft, abdominal adiposity, non-distended, no tenderness to light palpation, bowels +, no masses Incisions: Surgical bandages (R and L groin) intact, area clean and dry w/o erythema or purulence Extr: 2+ dp bilaterally, no edema, good perfusion Skin: No rashes lesions or erythema Results & Data Results & Data ([facility]) Vital Signs (Past 12 Hours) Vital Signs Temp Pulse Resp BP Pulse Ox O2 Del Method O2 Flow Rate 04/29/22 06:40 103 H 21 91 04/29/22 06:37 134/80 04/29/22 06:37 103 H 27 H 92 04/29/22 06:00 91 H 18 91 04/29/22 05:50 96 H 21 89 L 04/29/22 05:40 95 H 19 87 L 04/29/22 05:30 94 H 19 88 L 04/29/22 05:10 92 H 19 88 L 04/29/22 05:00 96 H 15 90 Room Air 04/29/22 04:30 37.3 C 90 15 93 Nasal Cannula 2 04/29/22 04:00 95 H 18 93 04/29/22 04:00 148/70 H 04/29/22 03:30 101 H 18 92 04/29/22 03:00 92 H 20 91 04/29/22 03:00 149/66 H 04/29/22 02:00 90 22 90 04/29/22 02:00 155/65 H 04/29/22 01:00 93 H 19 92 04/29/22 01:00 150/64 H 04/29/22 00:00 87 22 92 Nasal Cannula 2 04/29/22 00:00 150/62 H 04/28/22 23:50 85 21 91 04/28/22 23:40 85 21 92 04/28/22 23:50 84 03/14/23 23:30 84 20 91 04/28/22 23:00 82 14 93 04/28/22 23:00 144/63 H 04/28/22 23:46 37.3 C 04/28/22 22:30 84 14 92 04/28/22 22:00 87 18 94 Nasal Cannula 2 04/28/22 22:00 141/63 H 04/28/22 21:30 85 15 92 Nasal Cannula 2 04/28/22 21:00 83 19 92 04/28/22 21:00 134/56 L 04/28/22 20:30 78 17 92 04/28/22 20:00 83 18 93 04/28/22 20:00 132/57 L 04/28/22 19:50 84 17 94 04/28/22 19:40 90 18 93 04/28/22 19:30 84 15 94 04/28/22 19:20 82 18 94 Laboratory Results 04/29/22 04/29/22 04/28/22 04:41 04:41 Unknown WBC 10.54 RBC 4.27 L Hgb 13.4 L Hct 38.4 L MCV 89.9 MCH 31.4 MCHC 34.9 RDW Std Deviation 41.1 RDW Coeff of Kavitha 12.6 Plt Count 168 MPV 10.7 Immature Gran % (Auto) 0.4 Neut % (Auto) 84.8 Lymph % (Auto) 7.9 [place] % (Auto) 6.5 Eos % (Auto) 0.0 Baso % (Auto) 0.4 Neut # (Auto) 8.95 H Lymph # (Auto) 0.83 L [place] # (Auto) 0.68 H Eos # (Auto) 0.00 Baso # (Auto) 0.04 Immature Gran # (Auto) 0.04 Sodium 139 Potassium 4.5 Chloride 106 Carbon Dioxide 23 Anion Gap 10 BUN 28 H Creatinine 2.02 H Est Cr Clr Drug Dosing 40.7 Est GFR ( Amer) 36.8 Est GFR (Non-Af Amer) 31.8 BUN/Creatinine Ratio 13.9 Glucose 233 H POC Glucose Calcium 9.1 Phosphorus 5.5 H Magnesium 2.4 SARS-CoV-2, RNA, NAAT NEGATIVE Blood Type Antibody Screen Crossmatch 04/28/22 04/28/22 04/28/22 20:13 14:54 12:37 WBC RBC Hgb 13.1 L Hct 37.8 L MCV MCH MCHC RDW Std Deviation RDW Coeff of Kavitha Plt Count MPV Immature Gran % (Auto) Neut % (Auto) Lymph % (Auto) [place] % (Auto) Eos % (Auto) Baso % (Auto) Neut # (Auto) Lymph # (Auto) [place] # (Auto) Eos # (Auto) Baso # (Auto) Immature Gran # (Auto) Sodium Potassium Chloride Carbon Dioxide Anion Gap BUN Creatinine Est Cr Clr Drug Dosing Est GFR ( Amer) Est GFR (Non-Af Amer) BUN/Creatinine Ratio Glucose POC Glucose 157 H 234 H Calcium Phosphorus Magnesium SARS-CoV-2, RNA, NAAT Blood Type Antibody Screen Crossmatch 04/28/22 04/28/22 04/28/22 12:33 10:33 09:15 WBC RBC Hgb Hct MCV MCH MCHC RDW Std Deviation RDW Coeff of Kavitha Plt Count MPV Immature Gran % (Auto) Neut % (Auto) Lymph % (Auto) [place] % (Auto) Eos % (Auto) Baso % (Auto) Neut # (Auto) Lymph # (Auto) [place] # (Auto) Eos # (Auto) Baso # (Auto) Immature Gran # (Auto) Sodium Potassium Chloride Carbon Dioxide Anion Gap BUN Creatinine Est Cr Clr Drug Dosing Est GFR ( Amer) Est GFR (Non-Af Amer) BUN/Creatinine Ratio Glucose POC Glucose 196 H 169 H 191 H Calcium Phosphorus Magnesium SARS-CoV-2, RNA, NAAT Blood Type Antibody Screen Crossmatch 04/28/22 06:59 WBC RBC Hgb Hct MCV MCH MCHC RDW Std Deviation RDW Coeff of Kavitha Plt Count MPV Immature Gran % (Auto) Neut % (Auto) Lymph % (Auto) [place] % (Auto) Eos % (Auto) Baso % (Auto) Neut # (Auto) Lymph # (Auto) [place] # (Auto) Eos # (Auto) Baso # (Auto) Immature Gran # (Auto) Sodium Potassium Chloride Carbon Dioxide Anion Gap BUN Creatinine Est Cr Clr Drug Dosing Est GFR ( Amer) Est GFR (Non-Af Amer) BUN/Creatinine Ratio Glucose POC Glucose Calcium Phosphorus Magnesium SARS-CoV-2, RNA, NAAT Blood Type O Negative Antibody Screen NEGATIVE Crossmatch See Detail Resident Activity Tracking Resident Involvement: Resident Care Provided Care Provided: [facility] Medicine
[2022-04-29] MEDS: INSULIN ASPART PER UNIT SQ SCH ×3 (08:48→17:42)
[2022-04-29] MEDS: LANTUS PER UNIT CHARGE SQ SCH ×2 (08:49→20:43)
[2022-04-29] MEDS: CHOLECALCIFEROL 5,000 UNITS 125 MCG TAB PO SCH (08:51)
[2022-04-29] MEDS: CLOPIDOGREL BISULFATE 75 MG TAB PO SCH (08:51)
[2022-04-29] MEDS: ASCORBIC ACID 500 MG TAB PO SCH (08:51)
[2022-04-29] MEDS: CEROVITE ADV FORMULA TAB PO SCH (08:51)
[2022-04-29] MEDS: CYANOCOBALAMIN (B-12) 500 MCG TABLET PO SCH (08:51)
[2022-04-29] MEDS: FENOFIBRATE NANOCRYSTALLIZED 145 MG TABLET PO SCH (08:51)
[2022-04-29] MEDS: ASPIRIN 81 MG ECTAB PO SCH (08:51)
[2022-04-29] MEDS ORDERED: NON-FORMULARY MEDICATION (Glucosamine-Msm-Magnesium-Vitc [Glucosamine Complex-Msm] Capsule PO SCH (09:00)
--- NOTE | 2022-04-29 09:29 | Billing Data ---
Date of Service April 29, 2022 Coding Level of Care Code 50722 SUB INP/OBS CARE
--- NOTE | 2022-04-29 11:30 | Surgery Progress Note ---
Date of Service April 29, 2022 Assessment & Plan (1) Status post endovascular aneurysm repair: Plan: Patient doing well except for nausea. Will transfer to floor today. Pain controlled with iv meds. Admission and Anticipated Discharge Date Admission Date: April 28, 2022 Subjective No leg or foot pain. Does have nausea from surgery. Pain controlled with iv meds Physical Exam Constitutional: well developed and well nourished Respiratory: normal respiratory effort; no respiratory distress Cardiovascular: Rate/Rhythm: regular rate and regular rhythm Vessels: femoral pulses present, posterior tibial pulses present and dorsalis pedis pulses present Extremities: normal capillary refill Gastrointestinal (Abdomen): Inspection/Auscultation: abdomen normal to inspection; abdomen not distended Percussion/Palpation: abdomen soft; abdomen nontender Musculoskeletal: no cyanosis or clubbing, extremities motor strength 5/5 Skin: + incision (no complications, no hematoma left groin, prevena in place on right) Neurologic: CN's II-XI intact bilaterally and moves all extremities Psychiatric: Orientation: alert and oriented x 3 Results & Data Vital Signs (Past 12 Hours) Vital Signs Temp Pulse Resp BP Pulse Ox O2 Del Method O2 Flow Rate 04/29/22 06:40 103 H 21 91 04/29/22 06:37 134/80 04/29/22 06:37 103 H 27 H 92 04/29/22 06:00 91 H 18 91 04/29/22 05:50 96 H 21 89 L 04/29/22 05:40 95 H 19 87 L 04/29/22 05:30 94 H 19 88 L 04/29/22 05:10 92 H 19 88 L 04/29/22 05:00 96 H 15 90 Room Air 04/29/22 04:30 37.3 C 90 15 93 Nasal Cannula 2 04/29/22 04:00 95 H 18 93 04/29/22 04:00 148/70 H 04/29/22 03:30 101 H 18 92 04/29/22 03:00 92 H 20 91 04/29/22 03:00 149/66 H 04/29/22 02:00 90 22 90 04/29/22 02:00 155/65 H 04/29/22 01:00 93 H 19 92 04/29/22 01:00 150/64 H 04/29/22 00:00 87 22 92 Nasal Cannula 2 04/29/22 00:00 150/62 H 04/28/22 23:50 85 21 91 04/28/22 23:40 85 21 92 04/28/22 23:50 84 04/28/22 23:30 84 20 91 04/28/22 23:46 37.3 C
[2022-04-29] MEDS: oxyCODONE/ACETAMINOPHEN 5mg/325mg TAB PO PRN ×2 (13:36→20:33)
[2022-04-29] MEDS: FAMOTIDINE 20 MG TAB PO SCH (20:34)
[2022-04-29] MEDS: METOPROLOL SUCC 50MG EXT REL TAB PO SCH (20:35)
[2022-04-29] MEDS: lisinopril 20 MG TAB PO SCH (20:35)
[2022-04-29] MEDS: ATORVASTATIN 40 MG TAB PO SCH (20:35)
[2022-04-30 08:08] LABS: BUN Creatinine Ratio 14.2 (10-20); Calcium 8.6 mg/dl (8.5-10.1); Creatinine Clr Calc Pharmacy 29.3 ml/min; Est GFR (African American) 24.7 ml/min; Est GFR (Non-African American) 21.3 ml/min; Potassium 4.7 mmol/L (3.5-5.1)
[2022-04-30] MEDS: CYANOCOBALAMIN (B-12) 500 MCG TABLET PO SCH (08:28)
[2022-04-30] MEDS: FENOFIBRATE NANOCRYSTALLIZED 145 MG TABLET PO SCH (08:28)
[2022-04-30] MEDS: ASCORBIC ACID 500 MG TAB PO SCH (08:28)
[2022-04-30] MEDS: CLOPIDOGREL BISULFATE 75 MG TAB PO SCH (08:28)
[2022-04-30] MEDS: CEROVITE ADV FORMULA TAB PO SCH (08:28)
[2022-04-30] MEDS: INSULIN ASPART PER UNIT SQ SCH ×2 (08:28→12:35)
[2022-04-30] MEDS: CHOLECALCIFEROL 5,000 UNITS 125 MCG TAB PO SCH (08:28)
[2022-04-30] MEDS: ASPIRIN 81 MG ECTAB PO SCH (08:28)
[2022-04-30] MEDS: LANTUS PER UNIT CHARGE SQ SCH (08:29)
[2022-04-30] MEDS ORDERED: metFORMIN HCL 500 MG TAB PO SCH (09:00)
[2022-04-30] MEDS: oxyCODONE/ACETAMINOPHEN 5mg/325mg TAB PO PRN (12:42)
--- NOTE | 2022-04-30 14:37 | Surgery Progress Note ---
Date of Service April 30, 2022 Assessment & Plan (1) Status post endovascular aneurysm repair: Plan: Patient doing well. PEVAR was uneventful. D/C today Admission and Anticipated Discharge Date Admission Date: April 28, 2022 Subjective Doing much better today. No nausea. Tolerating diet Physical Exam Physical Exam: Constitutional: In general patient is an overweight but healthy-appearing well- nourished developed middle-aged male in no distress. He is alert and oriented without any deficits. His neck is supple nontender without a carotid bruit. His heart is regular, his lungs are decreased lightly but clear throughout. His abdomen is protuberant due to body habitus. It is slightly firm but nontender. I am unable to appreciate any pulsatile mass. His brachial and radial pulse are +3. His left femoral pulse is +3. His right femoral pulse is +3. His right lower extremity pulses are nonpalpable. His left DP and PT pulses are +1. He has brisk capillary fill no sign of distal ischemia Constitutional: well developed and well nourished; no acute distress Respiratory: normal respiratory effort; no respiratory distress Cardiovascular: Rate/Rhythm: regular rate and regular rhythm Vessels: femoral pulses present, posterior tibial pulses present and dorsalis pedis pulses present Extremities: normal capillary refill Gastrointestinal (Abdomen): Inspection/Auscultation: abdomen normal to in spection; abdomen not distended Percussion/Palpation: abdomen soft; abdomen nontender Musculoskeletal: no cyanosis or clubbing, extremities motor strength 5/5 Skin: + incision (no complications, no hematoma left groin, prevena in place on right) Neurologic: CN's II-XI intact bilaterally and moves all extremities Psychiatric: Orientation: alert and oriented x 3 Results & Data Vital Signs (Past 12 Hours) Vital Signs Temp Pulse Resp BP Pulse Ox O2 Del Method 04/30/22 14:21 36.7 C 82 16 125/62 96 Room Air 04/30/22 11:43 37.1 C 88 18 122/63 92 Room Air 04/30/22 11:19 37.3 C 85 18 97/57 L 90 Room Air 04/30/22 07:49 37.1 C 69 20 128/60 96 Room Air
--- NOTE | 2022-04-30 14:39 | Discharge Summary ---
Date of Service April 30, 2022 Admission HPI Per Admitting Provider HPI: _Mr. Lyon is a middle-age male who presents to Dr. Rivera's vascular surgery clinic today for an annual follow-up visit regarding his history of aneurysmal disease. 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 This was done many years ago at [facility] by Dr. Frandy Davis. 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 Patient says he has not had any significant changes in his health, although he does state that his diabetes has not been under as good control in the last few months. He states that he did strike his right toe on something and fracture it, but this has healed up well. He admits some bilateral low back pain which radiates into his buttocks after ambulating about 50 yards. Other than that he denies any calf claudication, rest pain, nonhealing wounds or ulcers, discoloration of the feet or toes, other complaints. His aortoiliac ultrasound performed prior to today's appointment demonstrates an infrarenal abdominal aortic aneurysm measuring 4.8 cm in its largest diameter. This is increased in comparison to the ultrasound performed last year, at which time it measured 4.5 cm. He also has stable aneurysms of his common iliac arteries at 2.3 cm. His bilateral lower extremity arterial ultrasound demonstrates a patent right common femoral artery bifurcated interposition graft with elevated velocities of 423 cm/s, suggestive of a significant stenosis. 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 His left leg demonstrates an aneurysm of his left above-knee popliteal artery at 11 mm. It also demonstrates occlusion of his posterior tibial artery and anterior tibial artery in the calf with reconstitution. His bilateral ABIs are 1.0. On CTA he has an abdominal aortic aneurysm measuring 5.5 cm in size. It is saccular in shape. He also has distal superficial femoral popliteal artery aneurysms which are small and do not need to be treated at this time. He did have a right femoral artery aneurysm which was repaired bifurcated graft. Admission Exam Per Admitting Provider Constitutional: In general patient is an overweight but healthy-appearing well- nourished developed middle-aged male in no distress. He is alert and oriented without any deficits. His neck is supple nontender without a carotid bruit. His heart is regular, his lungs are decreased lightly but clear throughout. His abdomen is protuberant due to body habitus. It is slightly firm but nontender. I am unable to appreciate any pulsatile mass. His brachial and radial pulse are +3. His left femoral pulse is +3. His right femoral pulse is +3. His right lower extremity pulses are nonpalpable. His left DP and PT pulses are +1. He has brisk capillary fill no sign of distal ischemia Principal Diagnosis Abdominal aortic aneurysm, endovascular repair of Discharge Exam Constitutional well developed and well nourished; no acute distress Respiratory normal respiratory effort; no respiratory distress Cardiovascular Rate/Rhythm: regular rate and regular rhythm Vessels: femoral pulses present, posterior tibial pulses present and dorsalis pedis pulses present Extremities: normal capillary refill Gastrointestinal (Abdomen) Inspection/Auscultation: abdomen normal to inspection; abdomen not distended Percussion/Palpation: abdomen soft; abdomen nontender Musculoskeletal no cyanosis or clubbing, extremities motor strength 5/5 Skin + incision (no complications, no hematoma left groin, prevena in place on right) Neurologic CN's II-XI intact bilaterally and moves all extremities Psychiatric Orientation: alert and oriented x 3 Discharge Data Allergies Allergy/AdvReac Type Severity Reaction Status Date / Time almond Allergy Intermediate Cough Verified 04/28/22 06:44 (occasional) No Known Drug Allergies Allergy Verified 04/28/22 06:44 adhesive tape AdvReac Intermediate Rash Verified 04/28/22 06:44 Consultations 04/28/22 13:57 Consult Assorter Routine Procedures Performed Operation Date: 04/28/22 08:00 Actual Procedures p Endovascular Abdominal Aortic Aneurysm Repair,Percutaneous on the Left, Open on the Right, Percutaneous Transluminal Angioplasty and Stenting of Right Superficial Femoral Artery and Right Profunda Artery - Constantino Rivera MD Ordered Studies 04/28/22 07:14 EV Angio Abdomen Aorta Routine US EV guide vascular access Routine Hospital Course (1) Status post endovascular aneurysm repair: Patient doing well. PEVAR was uneventful. D/C today Total Time Total Time Spent Total Time Spent (In Minutes): 0 Discharge Plan Discharge Items Patient Disposition: Home - Self-Care Reason For Visit: Abdominal Aortic Aneurysm Discharge Diagnosis: Abdominal aortic aneurysm Activity: Per Instructions section Non-emergency contact: Surgeon Call non-emergency contact if: your temperature is above 101.5, your wound has increased redness, your wound has increased drainage and your wound pain has increased Follow-up/Referrals: Woody Monterroso DO [Primary Care Provider] - Diet: Carb Consistent or DM2 and Heart Healthy Addtl Attending Provider Instructions: SPECIAL CARE INSTRUCTIONS: Leave dressing on till wednesday unless it looses its suction. Remove at that time. May wash wound once dressing off. Medications: * Continue to take your medications as directed. Incision/Puncture Site Care: * You will have an incision or puncture in each of your groins. Liquid glue will be used to seal your incisions/puncture site. This will lift off as the incisions/puncture sites heal. * If Liquid glue is not used, there will be small dressings covering your incisions. After you get home, you may remove the dressings and shower - allowing the warm soapy water to run over it. * Be sure to dry the sites well and keep them dry. * DO NOT SOAK IN A TUB/POOL/etc. UNTIL ALL SURGICAL SITES ARE HEALED. DO NOT REMOVE THE GLUE UNTIL THE INCISIONS HEAL. Restrictions: * Limit yourself to web site project manager activity for the first week. * You may walk and go up and down steps. * Avoid excessive bending or movement at the level of the incisions or punctures. Risks and Possible Complications: * Infection/Drainage/Bleeding - Drainage or bleeding from the incisions/puncture site should be minimal. If you have excessive bleeding or drainage, call our office ([phone]) right away. * Pain/Numbness - You may experience some mild pain or soreness at your incision sites. You may also have some numbness around the incisions or into the insides of your thighs. Bruising is normal and should resolve within 2 weeks. * Changes in Appetite or Bowel Habits - Mostly related to anesthesia and pain medication, some patients have reported decreased appetite and/or problems with constipation. These symptoms usually improve over a few weeks. Remembering to take an [id number] stool softener, as directed, will help you to avoid constipation. Call our office and seek emergent treatment if you develop: * Fever or chills * Have a temperature greater than 101 degrees F * Any redness or purulent drainage from your incisions or punctures * Severe abdominal, chest or back pain SKIN IRRITATION: * You may experience some redness and/or swelling in the area where radiation was administered. If any skin irritation occurs, please contact your family physician. You will be receiving a call from the Vascular Surgery Nurse after you are discharged. FOLLOW UP VISIT: It is important for you to keep your follow up appointments with your medical provider. Keep any scheduled doctor appointments. Call [phone] to schedule a follow up appointment if one not already scheduled. Pending Studies at Discharge: No Stand-Alone Forms: [facility], Smoking Cessation Medications and DC Order Prescriptions: New oxycodone-acetaminophen [Percocet] 5-325 mg tablet 1 tab PO Q6H PRN (Reason: pain) Qty: 30 0RF clopidogrel 75 mg tablet 75 mg PO DAILY Qty: 30 6RF Continued Lantus U-100 Insulin 100 unit/mL Cartridge 35 unit SUBCUT QAM lisinopril 20 mg Tablet 20 mg PO QPM famotidine 20 mg Tablet 20 mg PO HS metformin 1,000 mg Tablet 1,000 mg PO QPM Humalog KwikPen Insulin 200 unit/mL (3 mL) Insulin Pen 22 unit SUBCUT TIDM atorvastatin 40 mg Tablet 40 mg PO HS ascorbic acid (vitamin C) [Vitamin C] 1,000 mg Tablet 1,000 mg PO QAM insulin glargine [Lantus U-100 Insulin] 100 unit/mL Solution 45 unit SUBCUT QPM metoprolol succinate 50 mg Tablet Extended Release 24 Hr 50 mg PO QPM Multivitamin 50 Plus Tablet 1 tab PO QAM Glucosamine Complex-MSM Capsule 1 cap PO QAM fenofibrate nanocrystallized 145 mg Tablet 145 mg PO QAM cholecalciferol (vitamin D3) [Vitamin D3] 125 mcg (5,000 unit) Tablet 125 mcg PO QAM Ca-D3-mag [id number] [Calcium 600-D3 Plus (mag-zinc)] 600 mg calc ium- 20 mcg-50 mg Tablet 1 tab PO QAM aspirin 81 mg Capsule 81 mg PO QAM cyanocobalamin (vitamin B-12) [Vitamin B-12] 1,000 mcg Tablet 1,000 mcg PO QAM Discharge Orders: Discharge Order (Routine); Ordered 04/30/22 Ordered By: Constantino Rivera Admission Data Admit Date/Time: 04/28/22 06:41 Attending Provider: Constantino Rivera Admit Provider: Constantino Rivera Primary Care Provider: Woody Monterroso Other Providers: Albin Stone ; Colin Centeno ; Agusto Vasquez ; Khadar Dewitt ; Luis Cordero ; Mazin Cam ; Robson Sommers ; Mahad Richard ; Berenice Johnston
== END 2022-04-30 15:32 | disposition home or self-care (01) | DRG 269 ==
LOC: ASU 06:28 → 1E 06:41 → 3W 04-29 13:32
DX: T82.858A Stenosis of other vascular prosthetic devices, implants and grafts, initial encounter; I71.43 Infrarenal abdominal aortic aneurysm, without rupture; N18.4 Chronic kidney disease, stage 4 (severe); Z87.891 Personal history of nicotine dependence; E11.22 Type 2 diabetes mellitus with diabetic chronic kidney disease; Z86.718 Personal history of other venous thrombosis and embolism; E11.42 Type 2 diabetes mellitus with diabetic polyneuropathy; G47.33 Obstructive sleep apnea (adult) (pediatric); E78.5 Hyperlipidemia, unspecified; Z91.048 Other nonmedicinal substance allergy status; Y83.2 Surgical operation with anastomosis, bypass or graft as the cause of abnormal reaction of the patient, or of later complication, without mention of misadventure at the time of the procedure; Z79.82 Long term (current) use of aspirin; Z79.4 Long term (current) use of insulin; Z91.018 Allergy to other foods; Z79.84 Long term (current) use of oral hypoglycemic drugs; K21.9 Gastro-esophageal reflux disease without esophagitis; M19.90 Unspecified osteoarthritis, unspecified site; E11.65 Type 2 diabetes mellitus with hyperglycemia; Z95.828 Presence of other vascular implants and grafts; I12.9 Hypertensive chronic kidney disease with stage 1 through stage 4 chronic kidney disease, or unspecified chronic kidney disease; Z79.899 Other long term (current) drug therapy